=== PATIENT | female | born 1995 | race Caucasian/White ===

== ENCOUNTER 2022-11-01 12:22 | Observation (INO) | payer BC ==
[2022-11-01] MEDS ORDERED: Metoclopramide HCl 10 MG/2 ML VIAL ONE (12:48)
[2022-11-01] MEDS ORDERED: diphenhydrAMINE 50 MG/ML VIAL ONE (12:48)
[2022-11-01] MEDS ORDERED: Ondansetron PF 4 MG/2 ML Vial ONE (13:57)
[2022-11-01 14:01] LABS: #Basophils 0.1 10x3/uL (0.0-0.2); #Monocytes 0.5 10x3/uL (0.0-1.1); #Neutrophils 4.7 10x3/uL (1.5-8.4); %Basophils 1.4 % (0.0-2.0); %Lymphocytes 20.6 % (18.0-47.0); %Monocytes 7.1 % (0.0-10.0); %Neutrophils 70.4 % (40.0-75.0); Hemoglobin 14.3 g/dL (12.0-15.5); Mean Corpuscular HGB CONC 36.1 g/dL (32.0-36.0); Mean Corpuscular Hemoglobin 28.7 pg (27.0-33.0); Mean Corpuscular Volume 79.4 fl (81.6-98.3); Mean Platelet Volume 12.3 fl (7.4-10.4); Platelet Count 300 10x3/uL (150-450); Red Blood Cell (RBC) Count 4.99 10x6/uL (3.90-5.03); White Blood Cell (WBC) Count 6.7 10x3/uL (3.5-10.5)
[2022-11-01 14:10] LABS: ALT (SGPT) 9 U/L (8-55); AST (SGOT) 16 U/L (5-34); Albumin 4.6 g/dL (3.5-5.0); Alkaline Phosphatase 43 U/L (40-110); Anion Gap 21 mmol/L (10-20); BUN (Urea Nitrogen) 13 mg/dL (7.0-18.7); Bilirubin, Total 0.4 mg/dL (0.2-1.2); Calc. Creatinine Clearance 0 mL/min (70-130); Calcium 9.6 mg/dL (7.8-10.44); Carbon Dioxide 16 mmol/L (22-29); Chloride 103 mmol/L (98-107); Estimated GFR 123; Globulin 3.2 g/dL (2.4-3.5); Glucose 77 mg/dL (70-105); Potassium 3.5 mmol/L (3.5-5.1); Protein, Total 7.8 g/dL (6.0-8.3); Sodium 136 mmol/L (136-145)
[2022-11-01 15:12] LABS: Bilirubin Neg (Negative); Blood, Urine 10 (Negative); Clarity Clear (Clear); Glucose, Urine (Dipstick) Normal (Negative); Ketone, Urine 150 mg/dL (Negative); Leukocyte Negative (Negative); Nitrite Negative (Negative); Protein, Urine (Dipstick) 30 mg/dl (Neg-Trace); Urobilinogen Normal mg/dL (Less than 2)
[2022-11-01 15:19] LABS: Bacteria/HPF Rare-Few HPF (None Seen); CAUTI Indications for Culture Pregnancy; RBC/HPF 0-3 HPF (0-3); Squamous Epithelial 0-3 HPF (0-3); WBC/HPF 0-3 HPF (0-3)
[2022-11-01 15:20] LABS: Urine Culture Reflex Yes Yes
[2022-11-01] MEDS ORDERED: Ondansetron PF 4 MG/2 ML Vial IVP PRN (16:55)
[2022-11-01] MEDS ORDERED: Acetaminophen 325 MG TAB PO PRN (16:55)
[2022-11-01] MEDS ORDERED: Metoclopramide HCl 10 MG/2 ML VIAL IVP PRN (16:58)
[2022-11-01] MEDS ORDERED: Sodium Chloride 0.9% 1,000 ML IV SCH (17:00)
[2022-11-01] MEDS ORDERED: Acetaminophen 500 MG TAB PO PRN (17:15)
[2022-11-01 18:04] VITALS: BMI 25.4
[2022-11-01] MEDS: Famotidine 20 MG TAB PO SCH (20:31)
[2022-11-01] MEDS ORDERED: Famotidine/PF 20 mg/2ml Vial SLOW IVP PRN (21:00)
[2022-11-02] MEDS: Ondansetron ODT 4 MG TAB PO PRN ×2 (07:54→20:51)
[2022-11-02] MEDS: Famotidine 20 MG TAB PO SCH ×2 (07:54→20:51)
[2022-11-02] MEDS: Metoclopramide HCl 10 MG TAB PO SCH ×2 (11:04→20:51)
[2022-11-02] MEDS ORDERED: Doxycycline 100 MG CAP PO SCH (12:00)
[2022-11-02] MEDS ORDERED: Misoprostol 200 MCG TAB VAG SCH (12:00)
[2022-11-02] MEDS ORDERED: DOXYCYCLINE IVPB SCH (12:00)
[2022-11-02] MEDS ORDERED: SODIUM CHLORIDE 0.9% IVPB SCH (12:00)
[2022-11-02] MEDS ORDERED: Ondansetron PF 4 MG/2 ML Vial ONE (17:21)
[2022-11-02] MEDS ORDERED: PROPOFOL 20 ML ONE (17:21)
[2022-11-02] MEDS ORDERED: Dexamethasone 4 mg/ml Vial ONE (17:21)
[2022-11-02] MEDS ORDERED: fentaNYL 50 mcg/mL 1 mL Vial ONE (17:31)
[2022-11-02 20:24] VITALS: TEMP 98.6
[2022-11-02 21:20] VITALS: BP 112/61
== END 2022-11-02 21:25 | disposition home or self-care (01) ==
LOC: CSHERS 12:22 → CSHPP 15:48
PROVIDERS: ADMIT Obstetrics & Gynecology; ATTEND Obstetrics & Gynecology
PROC: 10D17ZZ Extraction of Products of Conception, Retained, Via Natural or Artificial Opening (ICD-10-PCS; principal; 2022-11-02)
DX: O21.0 Mild hyperemesis gravidarum (principal); O02.1 Missed abortion; Z3A.01 Less than 8 weeks gestation of pregnancy
CPT/HCPCS: 36415; 76856; 80053; 81001; 84702; 85025; 86850; 86900; 86901; 87086; 88305; 96361; 96365; 96375; 96376; G0378; J1100; J1200; J2405; J2704; J2765; J3010; J7050; Q0162

== ENCOUNTER 2023-10-11 11:37 | Emergency (ER) | payer BC ==
[2023-10-11] MEDS ORDERED: Metoclopramide HCl 10 MG (2 mL) VIAL ONE (12:04)
[2023-10-11 12:31] LABS: Bilirubin Neg (Negative); Blood, Urine Negative (Negative); Clarity Clear (Clear); Glucose, Urine (Dipstick) Normal (Negative); Ketone, Urine Negative (Negative); Leukocyte Negative (Negative); Nitrite Negative (Negative); Protein, Urine (Dipstick) Negative (Neg-Trace); Specific Gravity, Urine 1.015 (1.005-1.030)
[2023-10-11 13:40] LABS: Bacteria/HPF 3+ HPF (None Seen); CAUTI Indications for Culture Pregnancy; RBC/HPF 0-3 HPF (0-3); Squamous Epithelial 0-3 HPF (0-3); Transitional Epithelial 0-3 HPF (None Seen); WBC/HPF 0-3 HPF (0-3)
[2023-10-11 13:41] LABS: Urine Culture Reflex Yes Yes
== END 2023-10-11 13:10 | disposition home or self-care (01) ==
LOC: CSHERS 11:37
DX: R11.2 Nausea with vomiting, unspecified (principal)
CPT/HCPCS: 81001; 87086; 96374; 96375; J2765

== ENCOUNTER 2023-10-14 11:06 | Inpatient (IN) | payer BC ==
[2023-10-14] MEDS ORDERED: diphenhydrAMINE 50 MG/ML VIAL ONE (12:00)
[2023-10-14] MEDS ORDERED: Metoclopramide HCl 10 MG (2 mL) VIAL ONE (12:01)
[2023-10-14 12:18] LABS: #Basophils 0.07 10x3/uL (0.0-0.2); #Eosinphils 0.02 10x3/uL (0.0-0.5); #Monocytes 0.52 10x3/uL (0.0-1.1); #Neutrophils 4.76 10x3/uL (1.5-8.4); %Eosinophils 0.3 % (0.0-6.0); %Lymphocytes 26.2 % (18.0-47.0); %Monocytes 7.1 % (0.0-10.0); %Neutrophils 65.3 % (40.0-75.0); Hematocrit 37.4 % (34.9-44.5); Hemoglobin 13.5 g/dL (12.0-15.5); Mean Corpuscular HGB CONC 36.1 g/dL (32.0-36.0); Mean Corpuscular Hemoglobin 29.5 pg (27.0-33.0); Mean Corpuscular Volume 81.7 fL (81.6-98.3); Mean Platelet Volume 11.1 fL (7.4-10.4); Platelet Count 265 10x3/uL (150-450); RBC Distribution Width 12.3 % (11.5-14.5); Red Blood Cell (RBC) Count 4.58 10x6/uL (3.90-5.03); White Blood Cell (WBC) Count 7.3 10x3/uL (3.5-10.5)
[2023-10-14 12:29] LABS: ALT (SGPT) 12 U/L (8-55); AST (SGOT) 17 U/L (5-34); Albumin 3.9 g/dL (3.5-5.0); Alkaline Phosphatase 37 U/L (40-110); Anion Gap 13 mmol/L (10-20); BUN (Urea Nitrogen) 12 mg/dL (7.0-18.7); Bilirubin, Total 0.5 mg/dL (0.2-1.2); Calc. Creatinine Clearance 0 mL/min (70-130); Calcium 9.4 mg/dL (7.8-10.44); Carbon Dioxide 21 mmol/L (22-29); Chloride 105 mmol/L (98-107); Estimated GFR 107; Globulin 3.3 g/dL (2.4-3.5); Glucose 78 mg/dL (70-105); Potassium 4.3 mmol/L (3.5-5.1); Protein, Total 7.2 g/dL (6.0-8.3); Sodium 135 mmol/L (136-145)
[2023-10-14] MEDS ORDERED: Promethazine HCl 25 MG/ML VIAL IM PRN (13:22)
[2023-10-14] MEDS ORDERED: hydrALAZINE 20 MG/ML VIAL SLOW IVP PRN (13:22)
[2023-10-14] MEDS: Lactated Ringer's 1,000 ML IV SCH (16:36)
[2023-10-14] MEDS: Ondansetron PF 4 MG/2 ML Vial IVP PRN (18:05)
[2023-10-14] MEDS: Metoclopramide HCl 10 MG (2 mL) VIAL IVP SCH (21:09)
[2023-10-15 04:12] LABS: ALT (SGPT) 10 U/L (8-55); AST (SGOT) 18 U/L (5-34); Albumin 3.1 g/dL (3.5-5.0); Alkaline Phosphatase 31 U/L (40-110); Anion Gap 10 mmol/L (10-20); BUN (Urea Nitrogen) 10 mg/dL (7.0-18.7); Bilirubin, Total 0.4 mg/dL (0.2-1.2); Calc. Creatinine Clearance 0 mL/min (70-130); Calcium 8.5 mg/dL (7.8-10.44); Carbon Dioxide 22 mmol/L (22-29); Chloride 105 mmol/L (98-107); Estimated GFR 120; Globulin 2.7 g/dL (2.4-3.5); Glucose 95 mg/dL (70-105); Potassium 3.6 mmol/L (3.5-5.1); Protein, Total 5.8 g/dL (6.0-8.3); Sodium 133 mmol/L (136-145)
[2023-10-15] MEDS: Metoclopramide HCl 10 MG TAB PO SCH (08:33)
[2023-10-15] MEDS: Ondansetron ODT 4 MG TAB SL PRN (11:12)
[2023-10-15] MEDS: pyridOXINE 50 MG (B6) TAB PO SCH (12:07)
[2023-10-15] MEDS: Multivitamins, Adult 10 ML, Folic Acid 1 MG, Thiamine HCl 100 MG, Admixture Fee 1 EACH ... IV SCH (16:01)
[2023-10-15] MEDS: Promethazine 25 MG TAB PO PRN (16:45)
[2023-10-15] MEDS: Acetaminophen 325 MG TAB PO SCH (20:57)
[2023-10-16 03:46] LABS: Anion Gap 12 mmol/L (10-20); BUN (Urea Nitrogen) 4 mg/dL (7.0-18.7); Calc. Creatinine Clearance 0 mL/min (70-130); Calcium 8.6 mg/dL (7.8-10.44); Carbon Dioxide 21 mmol/L (22-29); Chloride 106 mmol/L (98-107); Estimated GFR 114; Glucose 91 mg/dL (70-105); Magnesium 1.7 mg/dL (1.6-2.6); Phosphorus 4.3 mg/dL (2.3-4.7); Potassium 3.5 mmol/L (3.5-5.1); Sodium 135 mmol/L (136-145)
[2023-10-16] MEDS: pyridOXINE 50 MG (B6) TAB PO SCH (08:05)
[2023-10-16 11:20] VITALS: BP 108/55; TEMP 98.5
== END 2023-10-16 14:35 | disposition home or self-care (01) | DRG 833 ==
LOC: CSHERS 11:06 → CSHPP 16:21 → OBSVTOIN 10-16 14:05
PROVIDERS: ADMIT Obstetrics & Gynecology; ATTEND Obstetrics & Gynecology
DX: O21.0 Mild hyperemesis gravidarum (principal); Z3A.01 Less than 8 weeks gestation of pregnancy; Z98.891 History of uterine scar from previous surgery
CPT/HCPCS: 36415; 76856; 80048; 80053; 83735; 84100; 84702; 85025; 96374; 96375; 96376; G0378; J1200; J2405; J2765; J3411; J7042; J7120; Q0162; Q0169

== ENCOUNTER 2023-10-18 12:56 | Inpatient (IN) | payer BC ==
[2023-10-18] MEDS ORDERED: Bisacodyl 10 MG SUPP PR PRN (14:46)
[2023-10-18] MEDS ORDERED: Bisacodyl 5 MG TAB PO PRN (14:46)
[2023-10-18] MEDS ORDERED: Senokot S 8.6-50 MG TAB PO PRN (14:46)
[2023-10-18] MEDS ORDERED: Acetaminophen 325 MG TAB PO PRN (14:46)
[2023-10-18] MEDS ORDERED: Calcium Carbonate 500 MG ChewTAB PO PRN (14:46)
[2023-10-18] MEDS ORDERED: Ondansetron PF 4 MG/2 ML Vial IVP PRN (15:05)
[2023-10-18 15:14] LABS: #Basophils 0.07 10x3/uL (0.0-0.2); #Eosinphils 0.01 10x3/uL (0.0-0.5); #Monocytes 0.49 10x3/uL (0.0-1.1); #Neutrophils 5.94 10x3/uL (1.5-8.4); %Basophils 0.9 % (0.0-2.0); %Eosinophils 0.1 % (0.0-6.0); %Lymphocytes 18.2 % (18.0-47.0); %Monocytes 6.1 % (0.0-10.0); %Neutrophils 74.6 % (40.0-75.0); Hematocrit 35.3 % (34.9-44.5); Mean Corpuscular HGB CONC 36.8 g/dL (32.0-36.0); Mean Corpuscular Hemoglobin 29.8 pg (27.0-33.0); Mean Platelet Volume 11.4 fL (7.4-10.4); Platelet Count 245 10x3/uL (150-450); RBC Distribution Width 11.9 % (11.5-14.5); Red Blood Cell (RBC) Count 4.36 10x6/uL (3.90-5.03)
[2023-10-18] MEDS ORDERED: Multivit, Adult Inj 10 ML VIAL IV SCH (15:15)
[2023-10-18 15:27] LABS: Phosphorus 3.2 mg/dL (2.3-4.7)
[2023-10-18 15:29] LABS: ALT (SGPT) 11 U/L (8-55); AST (SGOT) 16 U/L (5-34); Albumin 3.6 g/dL (3.5-5.0); Alkaline Phosphatase 38 U/L (40-110); Anion Gap 13 mmol/L (10-20); BUN (Urea Nitrogen) 13 mg/dL (7.0-18.7); Bilirubin, Total 0.4 mg/dL (0.2-1.2); Calc. Creatinine Clearance 0 mL/min (70-130); Calcium 8.9 mg/dL (7.8-10.44); Carbon Dioxide 20 mmol/L (22-29); Chloride 106 mmol/L (98-107); Estimated GFR 122; Globulin 3.2 g/dL (2.4-3.5); Glucose 74 mg/dL (70-105); Magnesium 1.8 mg/dL (1.6-2.6); Potassium 3.8 mmol/L (3.5-5.1); Protein, Total 6.8 g/dL (6.0-8.3); Sodium 135 mmol/L (136-145)
[2023-10-18] MEDS: diphenhydrAMINE 50 MG/ML VIAL IVP SCH (16:21)
[2023-10-18] MEDS: Ondansetron PF 4 MG/2 ML Vial IVP SCH (16:21)
[2023-10-18] MEDS: Lactated Ringer's 1,000 ML IV SCH (16:23)
[2023-10-18] MEDS: Dextrose 5%-Lactated Ringers 1,000 ML IV SCH (16:23)
[2023-10-18] MEDS: Pantoprazole 40 MG VIAL IVP SCH (17:08)
[2023-10-18] MEDS: Magnesium 2 GM/50 ML(in water) 2 GM in Premix 1 BAG IVPB SCH (17:39)
[2023-10-18] MEDS: Multivitamins, Adult 10 ML, Thiamine HCl 100 MG, Folic Acid 1 MG in Dextrose 5 %-0.45 %... IV SCH (17:40)
[2023-10-18 17:55] VITALS: BMI 26.7
[2023-10-18 18:34] LABS: Bilirubin Neg (Negative); Blood, Urine 10 (Negative); Clarity Clear (Clear); Glucose, Urine (Dipstick) Normal (Negative); Ketone, Urine 150 mg/dL (Negative); Leukocyte Negative (Negative); Nitrite Negative (Negative); Protein, Urine (Dipstick) 30 mg/dl (Neg-Trace); Specific Gravity, Urine 1.025 (1.005-1.030); Urobilinogen Normal mg/dL (Less than 2)
[2023-10-18 18:40] LABS: Bacteria/HPF 1+ HPF (None Seen); CAUTI Indications for Culture Pregnancy; RBC/HPF 0-3 HPF (0-3); Squamous Epithelial 0-3 HPF (0-3); WBC/HPF 0-3 HPF (0-3)
[2023-10-18 18:41] LABS: Mucous/LPF Rare LPF (<2+)
[2023-10-18 18:43] LABS: Urine Culture Reflex Yes Yes
[2023-10-18 18:54] LABS: Amphetamine Not Detected (NotDetected); Barbiturates Screen Not Detected (NotDetected); Benzodiazepine Screen Not Detected (NotDetected); Cocaine Metabolite Screen Not Detected (NotDetected); Methadone Not Detected (NotDetected); Methamphetamine Not Detected (NotDetected); Opiate Screen Not Detected (NotDetected); Oxycodone Screen Not Detected (NotDetected); Phencyclidine (PCP) Not Detected (NotDetected); THC/Cannabinoid Screen Not Detected (NotDetected); Tricyclic Screen Not Detected (NotDetected)
[2023-10-18] MEDS: Metoclopramide HCl 10 MG (2 mL) VIAL IVP SCH (20:52)
[2023-10-19 04:47] LABS: Phosphorus 2.9 mg/dL (2.3-4.7)
[2023-10-19 04:49] LABS: Anion Gap 9 mmol/L (10-20); BUN (Urea Nitrogen) 8 mg/dL (7.0-18.7); Calc. Creatinine Clearance 144 mL/min (70-130); Calcium 8.5 mg/dL (7.8-10.44); Carbon Dioxide 21 mmol/L (22-29); Chloride 107 mmol/L (98-107); Estimated GFR 125; Glucose 110 mg/dL (70-105); Magnesium 1.9 mg/dL (1.6-2.6); Potassium 3.2 mmol/L (3.5-5.1); Sodium 134 mmol/L (136-145)
[2023-10-19] MEDS: Magnesium 2 GM/50 ML(in water) 2 GM in Premix 1 BAG IVPB SCH (09:44)
[2023-10-19] MEDS: Metoclopramide HCl 10 MG (2 mL) VIAL IVP SCH (09:45)
[2023-10-19] MEDS: Pantoprazole 40 MG VIAL IVP SCH (09:45)
[2023-10-19] MEDS: diphenhydrAMINE 50 MG/ML VIAL IVP SCH (09:45)
[2023-10-19] MEDS: Ondansetron PF 4 MG/2 ML Vial IVP SCH (11:00)
[2023-10-19] MEDS: methylPREDNISolone Sod Succ/PF 125 MG/2 ML VIAL IVP SCH (11:00)
[2023-10-19] MEDS: Cephalexin 500 MG CAP PO SCH (11:01)
[2023-10-19] MEDS: Potassium Chloride 20 MEQ TAB PO SCH (11:01)
[2023-10-19] MEDS: Progesterone,Micronized 100 MG CAP PO SCH (21:42)
[2023-10-20 04:12] LABS: Anion Gap 13 mmol/L (10-20); BUN (Urea Nitrogen) Less than 4 mg/dL (7.0-18.7); Calc. Creatinine Clearance 138 mL/min (70-130); Calcium 8.8 mg/dL (7.8-10.44); Carbon Dioxide 19 mmol/L (22-29); Chloride 108 mmol/L (98-107); Estimated GFR 124; Glucose 136 mg/dL (70-105); Potassium 3.6 mmol/L (3.5-5.1); Sodium 136 mmol/L (136-145)
[2023-10-20 14:10] LABS: Magnesium 1.7 mg/dL (1.6-2.6); Phosphorus 1.6 mg/dL (2.3-4.7)
[2023-10-21 04:22] LABS: Anion Gap 12 mmol/L (10-20); BUN (Urea Nitrogen) 4 mg/dL (7.0-18.7); Calc. Creatinine Clearance 149 mL/min (70-130); Calcium 8.7 mg/dL (7.8-10.44); Carbon Dioxide 20 mmol/L (22-29); Chloride 109 mmol/L (98-107); Estimated GFR 126; Glucose 113 mg/dL (70-105); Potassium 3.6 mmol/L (3.5-5.1); Sodium 137 mmol/L (136-145)
[2023-10-21] MEDS: Magnesium 2 GM/50 ML(in water) 2 GM in Premix 1 BAG IVPB SCH ×2 (06:16→08:01)
[2023-10-21] MEDS ORDERED: Ondansetron ODT 4 MG TAB SL PRN (07:18)
[2023-10-21] MEDS: Potassium Phosphate 15 MMOL in Sodium Chloride 0.9% 100 ML IVPB SCH (08:53)
[2023-10-21] MEDS: Metoclopramide HCl 10 MG TAB PO SCH (09:02)
[2023-10-21] MEDS: predniSONE 20 MG TAB PO SCH (09:02)
[2023-10-21] MEDS: diphenhydrAMINE 25 MG CAP PO SCH (09:02)
[2023-10-21 09:50] VITALS: BP 102/60; TEMP 98.6
[2023-10-21] MEDS: Ondansetron ODT 4 MG TAB SL SCH (11:07)
[2023-10-21] MEDS ORDERED: diphenhydrAMINE 25 MG CAP PO SCH (17:00)
== END 2023-10-21 15:10 | disposition home or self-care (01) | DRG 833 ==
LOC: CSHANTE 12:56 → OBSVTOIN 10-20 08:39
PROVIDERS: ADMIT Family Medicine; ATTEND Family Medicine
DX: O21.0 Mild hyperemesis gravidarum (principal); O30.001 Twin pregnancy, unspecified number of placenta and unspecified number of amniotic sacs, first trimester; O99.281 Endocrine, nutritional and metabolic diseases complicating pregnancy, first trimester; E83.42 Hypomagnesemia; E87.6 Hypokalemia; E83.39 Other disorders of phosphorus metabolism; Z3A.01 Less than 8 weeks gestation of pregnancy; Z79.899 Other long term (current) drug therapy
CPT/HCPCS: 36415; 76856; 80048; 80053; 80306; 81001; 83735; 84100; 84439; 84443; 85025; 87086; 93005; 93010; C9113; J1200; J2405; J2765; J2930; J3411; J3475; J3490; J7042; J7120; J7512; Q0162

== ENCOUNTER 2023-10-30 09:17 | Inpatient (IN) | payer BC ==
[2023-10-30] MEDS ORDERED: Ondansetron PF 4 MG/2 ML Vial ONE (09:55)
[2023-10-30 10:15] LABS: #Basophils 0.06 10x3/uL (0.0-0.2); #Eosinphils 0.03 10x3/uL (0.0-0.5); #Monocytes 0.96 10x3/uL (0.0-1.1); #Neutrophils 6.12 10x3/uL (1.5-8.4); %Basophils 0.7 % (0.0-2.0); %Eosinophils 0.3 % (0.0-6.0); %Lymphocytes 17.4 % (18.0-47.0); %Neutrophils 70.3 % (40.0-75.0); Hematocrit 36.7 % (34.9-44.5); Hemoglobin 13.4 g/dL (12.0-15.5); Mean Corpuscular HGB CONC 36.5 g/dL (32.0-36.0); Mean Corpuscular Volume 82.3 fL (81.6-98.3); Mean Platelet Volume 11.2 fL (7.4-10.4); Platelet Count 317 10x3/uL (150-450); Red Blood Cell (RBC) Count 4.46 10x6/uL (3.90-5.03); White Blood Cell (WBC) Count 8.7 10x3/uL (3.5-10.5)
[2023-10-30 10:44] LABS: ALT (SGPT) 18 U/L (8-55); AST (SGOT) 15 U/L (5-34); Albumin 3.6 g/dL (3.5-5.0); Alkaline Phosphatase 50 U/L (40-110); Anion Gap 12 mmol/L (10-20); BUN (Urea Nitrogen) 10 mg/dL (7.0-18.7); Bilirubin, Total 0.4 mg/dL (0.2-1.2); Calc. Creatinine Clearance 0 mL/min (70-130); Calcium 9.3 mg/dL (7.8-10.44); Carbon Dioxide 24 mmol/L (22-29); Chloride 103 mmol/L (98-107); Estimated GFR 123; Globulin 3.2 g/dL (2.4-3.5); Glucose 93 mg/dL (70-105); Potassium 4.1 mmol/L (3.5-5.1); Protein, Total 6.8 g/dL (6.0-8.3); Sodium 135 mmol/L (136-145)
[2023-10-30 13:30] LABS: Phosphorus 3.1 mg/dL (2.3-4.7)
[2023-10-30] MEDS ORDERED: Promethazine HCl 12.5 MG, Admixture Fee 1 EACH in Sodium Chloride 0.9% 50 ML IVPB PRN (13:32)
[2023-10-30] MEDS ORDERED: Ondansetron PF 4 MG/2 ML Vial IVP PRN (13:33)
[2023-10-30 14:02] LABS: Bilirubin Neg (Negative); Blood, Urine 10 (Negative); Glucose, Urine (Dipstick) Normal (Negative); Ketone, Urine 150 mg/dL (Negative); Leukocyte Negative (Negative); Nitrite Negative (Negative); Protein, Urine (Dipstick) Negative (Neg-Trace); Urobilinogen Normal mg/dL (Less than 2)
[2023-10-30 14:31] LABS: Clarity Hazy (Clear)
[2023-10-30] MEDS ORDERED: Metoclopramide HCl 10 MG (2 mL) VIAL IVP PRN (14:36)
[2023-10-30] MEDS ORDERED: diphenhydrAMINE 50 MG/ML VIAL IVP PRN (14:36)
[2023-10-30 14:39] LABS: CAUTI Indications for Culture Pregnancy; RBC/HPF 0-3 HPF (0-3); Squamous Epithelial 0-3 HPF (0-3); Transitional Epithelial 0-3 HPF (None Seen); WBC/HPF 0-3 HPF (0-3)
[2023-10-30 14:40] LABS: Mucous/LPF 3+ LPF (<2+)
[2023-10-30 14:41] LABS: Bacteria/HPF 2+ HPF (None Seen)
[2023-10-30 14:42] LABS: Urine Culture Reflex Yes Yes
[2023-10-30] MEDS: Multivitamins, Adult 10 ML, Folic Acid 1 MG, Thiamine HCl 100 MG, Admixture Fee 1 EACH ... IV SCH (16:30)
[2023-10-30] MEDS: Metoclopramide HCl 10 MG (2 mL) VIAL IVP SCH ×2 (16:30→16:39)
[2023-10-30] MEDS: diphenhydrAMINE 50 MG/ML VIAL IVP SCH ×2 (16:31→16:39)
[2023-10-30] MEDS: Ondansetron PF 4 MG/2 ML Vial IVP SCH (16:39)
[2023-10-30] MEDS: Ondansetron HCl/PF 8 MG, Admixture Fee 1 EACH in Sodium Chloride 0.9% 50 ML IVPB SCH (17:36)
[2023-10-30] MEDS: Lactated Ringer's 1,000 ML IV SCH (17:36)
[2023-10-30] MEDS: PROGESTERONE MICRONIZED 200 MG VAG SCH (21:52)
[2023-10-31 04:59] LABS: ALT (SGPT) 12 U/L (8-55); AST (SGOT) 17 U/L (5-34); Alkaline Phosphatase 34 U/L (40-110); Anion Gap 12 mmol/L (10-20); BUN (Urea Nitrogen) 6 mg/dL (7.0-18.7); Bilirubin, Total 0.3 mg/dL (0.2-1.2); Calc. Creatinine Clearance 150 mL/min (70-130); Calcium 8.5 mg/dL (7.8-10.44); Carbon Dioxide 20 mmol/L (22-29); Chloride 107 mmol/L (98-107); Estimated GFR 126; Globulin 2.5 g/dL (2.4-3.5); Glucose 89 mg/dL (70-105); Magnesium 1.9 mg/dL (1.6-2.6); Phosphorus 3.2 mg/dL (2.3-4.7); Potassium 3.7 mmol/L (3.5-5.1); Protein, Total 5.5 g/dL (6.0-8.3); Sodium 135 mmol/L (136-145)
[2023-10-31] MEDS: Polyethylene Glycol 3350 17 GM Packet PO SCH (08:22)
[2023-10-31] MEDS: Potassium Chloride 20 MEQ TAB PO SCH (08:22)
[2023-10-31] MEDS: Pantoprazole 40 MG VIAL IVP SCH (08:22)
[2023-10-31] MEDS ORDERED: [UNRECOGNIZED DRUG - OTHER] PO SCH ×2 (09:00)
[2023-10-31 09:39] VITALS: BMI 26.5
[2023-10-31] MEDS: Lactated Ringer's 1,000 ML IV SCH (15:17)
[2023-10-31] MEDS: Aspirin Chewable 81 MG TAB PO SCH (21:47)
[2023-11-01 04:07] LABS: ALT (SGPT) 13 U/L (8-55); AST (SGOT) 14 U/L (5-34); Alkaline Phosphatase 34 U/L (40-110); Anion Gap 12 mmol/L (10-20); BUN (Urea Nitrogen) 4 mg/dL (7.0-18.7); Bilirubin, Total 0.3 mg/dL (0.2-1.2); Calc. Creatinine Clearance 164 mL/min (70-130); Calcium 8.6 mg/dL (7.8-10.44); Carbon Dioxide 21 mmol/L (22-29); Chloride 108 mmol/L (98-107); Estimated GFR 128; Globulin 2.4 g/dL (2.4-3.5); Glucose 86 mg/dL (70-105); Magnesium 1.8 mg/dL (1.6-2.6); Potassium 3.6 mmol/L (3.5-5.1); Protein, Total 5.4 g/dL (6.0-8.3); Sodium 137 mmol/L (136-145)
[2023-11-01] MEDS ORDERED: Promethazine 25 MG TAB PO PRN (07:29)
[2023-11-01] MEDS: Potassium Chloride 20 MEQ in Premix 1 BAG IVPB SCH (08:55)
[2023-11-01] MEDS: Pantoprazole DR 40 MG TAB PO SCH (08:56)
[2023-11-01] MEDS: Prenatal Vitamin 1 TAB PO SCH (08:56)
[2023-11-01 09:26] VITALS: BMI 26.8
[2023-11-01] MEDS: diphenhydrAMINE 25 MG CAP PO SCH (11:43)
[2023-11-01 11:44] VITALS: TEMP 98.2
[2023-11-01] MEDS: Ondansetron ODT 4 MG TAB SL SCH (11:44)
[2023-11-01] MEDS: Metoclopramide HCl 10 MG TAB PO SCH (11:44)
[2023-11-01 21:49] VITALS: BP 131/73
== END 2023-11-01 20:05 | disposition home or self-care (01) | DRG 833 ==
LOC: CSHERS 09:17 → CSHPP 09:18 → UNDOADMOB 15:32 → CSHPP 15:32 → UNDOADMOB 10-31 16:55 → CSHPP 10-31 16:55 → OBSVTOIN 10-31 16:55 → INTOOBSV 11-01 10:00
PROVIDERS: ADMIT Family Medicine; ATTEND Family Medicine
DX: O21.0 Mild hyperemesis gravidarum (principal); Z3A.08 8 weeks gestation of pregnancy; E86.0 Dehydration
CPT/HCPCS: 36415; 80053; 81001; 83735; 84100; 85025; 87086; 93005; 93010; 96361; 96374; C9113; J1200; J2405; J2765; J3411; J3480; J7042; J7120; Q0162

== ENCOUNTER 2023-11-05 13:11 | Emergency (ER) | payer BC ==
[2023-11-05] MEDS ORDERED: Metoclopramide HCl 10 MG (2 mL) VIAL ONE (14:02)
[2023-11-05] MEDS ORDERED: Multivitamins, Adult 10 ML, Thiamine HCl 100 MG, Folic Acid 1 MG in Dextrose 5 %-0.45 %... IV SCH (14:15)
[2023-11-05 15:32] LABS: Bilirubin Neg (Negative); Blood, Urine 10 (Negative); Clarity Clear (Clear); Glucose, Urine (Dipstick) Normal (Negative); Ketone, Urine 150 mg/dL (Negative); Leukocyte Negative (Negative); Nitrite Negative (Negative); Protein, Urine (Dipstick) 30 mg/dl (Neg-Trace); Urobilinogen Normal mg/dL (Less than 2)
[2023-11-05 15:47] LABS: Bacteria/HPF Rare-Few HPF (None Seen); CAUTI Indications for Culture Pregnancy; RBC/HPF 0-3 HPF (0-3); WBC/HPF 0-3 HPF (0-3)
[2023-11-05 15:48] LABS: Urine Culture Reflex Yes Yes
[2023-11-05] MEDS ORDERED: Ondansetron PF 4 MG/2 ML Vial ONE (16:29)
== END 2023-11-05 17:05 | disposition home or self-care (01) ==
LOC: CSHERS 13:11
DX: O21.0 Mild hyperemesis gravidarum (principal); E87.1 Hypo-osmolality and hyponatremia; O30.041 Twin pregnancy, dichorionic/diamniotic, first trimester; O99.281 Endocrine, nutritional and metabolic diseases complicating pregnancy, first trimester; Z3A.09 9 weeks gestation of pregnancy
CPT/HCPCS: 81001; 87086; J2405; J2765; J3411; J7042

== ENCOUNTER 2024-04-26 15:05 | Inpatient (IN) | payer BC ==
[2024-04-26 17:51] LABS: Fetal Membranes Rupture No Membranes Rupture (No Rupture)
[2024-04-26 18:04] LABS: Fetal Fibronectin Negative (Negative)
[2024-04-26 18:05] LABS: FFN Internal QC Analyzer PASS (PASS); FFN Internal QC Cassette PASS (PASS)
[2024-04-26] MEDS ORDERED: Promethazine HCl 25 MG/ML VIAL IM PRN (19:07)
[2024-04-26] MEDS ORDERED: Tranexamic Acid 1,000 MG/10 ML VIAL IVP PRN (19:07)
[2024-04-26] MEDS ORDERED: Carboprost 250 MCG/ML AMP IM PRN (19:07)
[2024-04-26] MEDS ORDERED: Diphenoxylate HCl/Atropine Tablet PO PRN (19:07)
[2024-04-26] MEDS ORDERED: Ondansetron PF 4 MG/2 ML Vial IVP PRN (19:07)
[2024-04-26] MEDS ORDERED: Misoprostol 200 MCG TAB PR PRN (19:07)
[2024-04-26] MEDS ORDERED: Methylergonovine 0.2 MG/ML VIAL IM PRN (19:07)
[2024-04-26] MEDS ORDERED: hydrALAZINE 20 MG/ML VIAL SLOW IVP PRN (19:07)
[2024-04-26] MEDS ORDERED: Oxytocin 30 units/NS 500 ML 500 ML IV SCH (19:15)
[2024-04-26 19:19] VITALS: BMI 32.5
[2024-04-26] MEDS: NIFEdipine 10 MG CAP PO SCH (19:37)
[2024-04-26] MEDS: metroNIDAZOLE 500 MG TAB PO SCH (19:39)
[2024-04-26] MEDS: Lactated Ringer's 1,000 ML IV SCH (19:41)
[2024-04-26] MEDS: Betamet Acet/Betamet Na Ph 30 MG/5 ML VIAL IM SCH (19:41)
[2024-04-26] MEDS: Betamet Acet/Betamet Na Ph 30 MG/5 ML VIAL ONE (22:29)
[2024-04-27] MEDS: metroNIDAZOLE 500 MG TAB PO SCH (08:06)
[2024-04-27] MEDS: Acetaminophen 500 MG TAB PO PRN (11:54)
[2024-04-27] MEDS: Polyethylene Glycol 3350 17 GM Packet PO SCH (13:52)
[2024-04-27] MEDS ORDERED: Acetaminophen 500 MG TAB PO PRN (16:38)
[2024-04-27] MEDS ORDERED: Mineral Oil ENEMA PR PRN (17:11)
[2024-04-27] MEDS ORDERED: Promethazine 25 MG TAB PO PRN (19:53)
[2024-04-27] MEDS: NIFEdipine 10 MG CAP ONE (20:26)
[2024-04-27] MEDS: Docusate 100 MG CAP PO SCH (20:43)
[2024-04-27] MEDS: Morphine 4 MG/ML VIAL SLOW IVP PRN (21:51)
[2024-04-28] MEDS ORDERED: diphenhydrAMINE 12.5 MG/5 ML UDCUP PO PRN (09:56)
[2024-04-28] MEDS ORDERED: Iron Sucrose Complex 100 MG in Sodium Chloride 0.9% 100 ML IVPB SCH (10:30)
[2024-04-28] MEDS: Acetaminophen 500 MG TAB PO SCH (11:27)
[2024-04-28] MEDS: Iron Sucrose Complex 500 MG in Sodium Chloride 0.9% 250 ML 250 ML IVPB SCH (12:46)
[2024-04-28 20:12] LABS: Fetal Membranes Rupture No Membranes Rupture (No Rupture)
[2024-04-28] MEDS: Polyethylene Glycol 3350 17 GM Packet PO SCH (20:35)
[2024-04-28 22:02] LABS: Bilirubin Neg (Negative); Blood, Urine Negative (Negative); Clarity Clear (Clear); Glucose, Urine (Dipstick) Normal (Negative); Ketone, Urine Negative (Negative); Leukocyte Negative (Negative); Nitrite Negative (Negative); Protein, Urine (Dipstick) Negative (Neg-Trace); Urobilinogen Normal mg/dL (Less than 2)
[2024-04-28 22:18] LABS: Bacteria/HPF Rare-Few HPF (None Seen); CAUTI Indications for Culture Pregnancy; RBC/HPF 0-3 HPF (0-3); Squamous Epithelial 0-3 HPF (0-3); WBC/HPF 0-3 HPF (0-3)
[2024-04-28 22:19] LABS: Urine Culture Reflex Yes Yes
[2024-04-29 03:19] LABS: #Basophils 0.05 10x3/uL (0.0-0.2); #Eosinophils Less than 0.03 10x3/uL (0.0-0.5); #Monocytes 1.21 10x3/uL (0.0-1.1); #Neutrophils 7.55 10x3/uL (1.5-8.4); %Basophils 0.5 % (0.0-2.0); %Eosinophils 0.1 % (0.0-6.0); %Lymphocytes 17.3 % (18.0-47.0); %Neutrophils 68.6 % (40.0-75.0); Hematocrit 21.4 % (34.9-44.5); Mean Corpuscular HGB CONC 32.7 g/dL (32.0-36.0); Mean Corpuscular Hemoglobin 24.8 pg (27.0-33.0); Mean Corpuscular Volume 75.9 fL (81.6-98.3); Mean Platelet Volume 11.1 fL (7.4-10.4); Platelet Count 240 10x3/uL (150-450); Red Blood Cell (RBC) Count 2.82 10x6/uL (3.90-5.03); White Blood Cell (WBC) Count 11.01 10x3/uL (3.5-10.5)
[2024-04-29 03:40] LABS: ALT (SGPT) Less than 7 U/L (8-55); AST (SGOT) 10 U/L (5-34); Albumin 2.3 g/dL (3.5-5.0); Alkaline Phosphatase 129 U/L (40-110); Anion Gap 12 mmol/L (10-20); BUN (Urea Nitrogen) 5 mg/dL (7.0-18.7); Bilirubin, Total 0.2 mg/dL (0.2-1.2); Calc. Creatinine Clearance 195 mL/min (70-130); Calcium 8.3 mg/dL (7.8-10.44); Carbon Dioxide 20 mmol/L (22-29); Chloride 110 mmol/L (98-107); Estimated GFR 128; Globulin 2.9 g/dL (2.4-3.5); Glucose 97 mg/dL (70-105); Potassium 3.5 mmol/L (3.5-5.1); Protein, Total 5.2 g/dL (6.0-8.3); Sodium 138 mmol/L (136-145)
[2024-04-29 04:10] LABS: Syphilis Antibody Nonreactive (Nonreactive); Syphilis Antibody Index 0.05 S/CO (<1.00 Non-Reactive)
[2024-04-29 04:13] LABS: HBsAg Index 0.28 S/CO (0-0.99); HIV (1/2) Antibody/Antigen Non-Reactive (NonReactive); HIV 1/2 INDEX 0.17 S/CO (<1.00); Hep B Surf Ag - L&D Non-Reactive S/CO (NonReactive)
[2024-04-29] MEDS: Prenatal Vitamin 1 TAB PO SCH (09:09)
[2024-04-29 09:21] LABS: Hematocrit 23.4 % (34.9-44.5); Hemoglobin 7.2 g/dL (12.0-15.5)
[2024-04-29 13:55] LABS: Hematocrit 24.9 % (34.9-44.5); Hemoglobin 7.9 g/dL (12.0-15.5); Platelet Count 241 10x3/uL (150-450)
[2024-04-30] MEDS: Mineral Oil ENEMA PR SCH (07:59)
[2024-04-30] MEDS: Lactated Ringer's 1,000 ML IV SCH (07:59)
[2024-04-30] MEDS ORDERED: Iron Sucrose Complex 100 MG in Sodium Chloride 0.9% 100 ML IVPB SCH (10:15)
[2024-04-30] MEDS: Acetaminophen 500 MG TAB PO SCH (12:21)
[2024-04-30] MEDS: Iron Sucrose Complex 500 MG, Admixture Fee 1 EACH in Sodium Chloride 0.9% 250 ML 250 ML IVPB SCH (13:13)
[2024-04-30 14:12] LABS: Group B Streptococcus by PCR Not Detected (NotDetected)
[2024-04-30 14:49] LABS: Chlamydia by PCR, Vaginal Swab Not Detected (NotDetected); GC by PCR, Vaginal Swab Not Detected (NotDetected); Tric.vaginalis PCR,Vaginal Sw Not Detected (NotDetected)
[2024-05-01 05:17] LABS: Hematocrit 26.4 % (34.9-44.5); Hemoglobin 8.6 g/dL (12.0-15.5)
[2024-05-01] MEDS ORDERED: fentaNYL 50 mcg/mL 1 mL Vial SLOW IVP PRN ×2 (11:19→17:02)
[2024-05-01] MEDS: CEFAZOLIN 2 GM VIAL ONE (15:38)
[2024-05-01] MEDS ORDERED: Famotidine/PF 20 mg/2ml Vial SLOW IVP PRN (15:43)
[2024-05-01] MEDS ORDERED: Bicitra 30 ML UDCUP PO PRN (15:43)
[2024-05-01] MEDS ORDERED: CEFAZOLIN 2 GM in Sodium Chloride 0.9% 100 ML IVPB SCH (15:45)
[2024-05-01] MEDS ORDERED: Azithromycin 500 MG in Sodium Chloride 0.9% 250 ML 250 ML IVPB SCH (16:00)
[2024-05-01 16:51] LABS: Analyzer IN Cardio CS NICU; RapidComm Collect By cbn; pH (Cord, venous) 7.354 (7.250-7.350)
[2024-05-01 16:52] LABS: Analyzer IN Cardio CS NICU; RapidComm Collect By CBN
[2024-05-01] MEDS ORDERED: diphenhydrAMINE 50 MG/ML VIAL IVP PRN (17:02)
[2024-05-01] MEDS ORDERED: Naloxone HCl 0.4 mg/ml Vial IVP PRN ×2 (17:02)
[2024-05-01] MEDS ORDERED: Meperidine HCl/PF 25 MG (1 mL) VIAL SLOW IVP PRN (17:02)
[2024-05-01] MEDS ORDERED: Moisturizing Cream (Eucerin) 113 GM JAR TOP PRN (17:02)
[2024-05-01] MEDS ORDERED: Ondansetron PF 4 MG/2 ML Vial IVP PRN ×2 (17:02)
[2024-05-01] MEDS ORDERED: Naloxone HCl 0.4 mg/ml Vial IV PRN (17:02)
[2024-05-01] MEDS ORDERED: Promethazine HCl 25 MG/ML VIAL IM PRN (17:02)
[2024-05-01] MEDS ORDERED: Communication Order-Pharmacy FS SCH (17:15)
[2024-05-01] MEDS: Diphenoxylate HCl/Atropine Tablet PO SCH (17:28)
[2024-05-01] MEDS: Tranexamic Acid 1,000 MG/10 ML VIAL ONE ×3 (17:39→18:21)
[2024-05-01 17:51] LABS: Hematocrit 30.2 % (34.9-44.5); Hemoglobin 9.8 g/dL (12.0-15.5)
[2024-05-01 18:09] LABS: Platelet Count 255 10x3/uL (150-450)
[2024-05-01] MEDS: fentaNYL 50 mcg/mL 1 mL Vial ONE (18:19)
[2024-05-01] MEDS: Morphine PF 10 MG/10 ML VIAL ONE (18:19)
[2024-05-01] MEDS: Oxytocin 10 UNITS/ML VIAL ONE ×2 (18:20→18:21)
[2024-05-01] MEDS: Dexamethasone 10 MG/ML VIAL ONE (18:20)
[2024-05-01] MEDS: Ondansetron PF 4 MG/2 ML Vial ONE (18:20)
[2024-05-01] MEDS: PHENYLEPHRINE-NS 100 MCG/ML 10 ML SYRINGE ONE (18:20)
[2024-05-01] MEDS: Phenylephrine 40 MG/NS 250 ML 250 ML ONE (18:20)
[2024-05-01] MEDS: Misoprostol 200 MCG TAB ONE (18:21)
[2024-05-01] MEDS: Phytonadione Neonatal 1 MG/0.5 ML AMP ONE (18:21)
[2024-05-01] MEDS: Carboprost 250 MCG/ML AMP ONE (18:21)
[2024-05-01] MEDS: Erythromycin Base 0.5% Oint 1 GM TUBE ONE (18:21)
[2024-05-01] MEDS: Tranexamic Acid 1,000 MG in Sodium Chloride 0.9% 250 ML 250 ML IVPB SCH (18:27)
[2024-05-01 18:41] LABS: D-Dimer Test Greater than 35.20 mcg/mL (0.19-0.50); Fibrinogen 417 mg/dL (220-504); INR-International Normal Ratio 0.9; PTT 27.3 sec (22.0-33.0); Prothrombin Time 10.1 sec (9.5-12.1)
[2024-05-01] MEDS: Ketorolac Tromethamine 30 MG (1 mL) VIAL IVP SCH (19:01)
[2024-05-01] MEDS: Sodium Chloride 0.9% 500 ML IV SCH (19:02)
[2024-05-01] MEDS ORDERED: Acetaminophen 325 MG TAB PO PRN (20:22)
[2024-05-01] MEDS ORDERED: Lanolin Ointment 7 GM TUBE TOP PRN (20:22)
[2024-05-01] MEDS ORDERED: hydrALAZINE 20 MG/ML VIAL SLOW IVP PRN (20:22)
[2024-05-01] MEDS ORDERED: Misoprostol 200 MCG TAB PR PRN (20:22)
[2024-05-01] MEDS ORDERED: Simethicone Chewable 80 MG TAB PO PRN (20:22)
[2024-05-01] MEDS ORDERED: Methylergonovine 0.2 MG/ML VIAL IM PRN (20:22)
[2024-05-01] MEDS ORDERED: Oxytocin 30 units/NS 500 ML 500 ML IV SCH (20:22)
[2024-05-01] MEDS ORDERED: Methylergonovine 0.2 MG TAB PO PRN (20:22)
[2024-05-01 22:00] LABS: #Basophils 0.04 10x3/uL (0.0-0.2); #Eosinophils Less than 0.03 10x3/uL (0.0-0.5); #Monocytes 0.93 10x3/uL (0.0-1.1); %Basophils 0.2 % (0.0-2.0); %Eosinophils 0.1 % (0.0-6.0); %Lymphocytes 6.4 % (18.0-47.0); %Neutrophils 87.1 % (40.0-75.0); Hematocrit 31.2 % (34.9-44.5); Hemoglobin 10.1 g/dL (12.0-15.5); Mean Corpuscular HGB CONC 32.4 g/dL (32.0-36.0); Mean Corpuscular Hemoglobin 25.3 pg (27.0-33.0); Mean Corpuscular Volume 78.2 fL (81.6-98.3); Mean Platelet Volume 11.7 fL (7.4-10.4); Platelet Count 267 10x3/uL (150-450); RBC Distribution Width 14.7 % (11.5-14.5); Red Blood Cell (RBC) Count 3.99 10x6/uL (3.90-5.03); White Blood Cell (WBC) Count 18.61 10x3/uL (3.5-10.5)
[2024-05-01 22:57] LABS: ALT (SGPT) 17 U/L (Less than 34); AST (SGOT) 46 U/L (11-34); Albumin 2.8 g/dL (3.1-4.5); Alkaline Phosphatase 167 U/L (40-110); Anion Gap 14 mmol/L (10-20); BUN (Urea Nitrogen) 5 mg/dL (7.0-18.7); Bilirubin, Total 0.3 mg/dL (0.3-1.2); Calc. Creatinine Clearance 189 mL/min (70-130); Calcium 9.5 mg/dL (7.8-10.44); Carbon Dioxide 21 mmol/L (22-29); Chloride 102 mmol/L (98-107); Estimated GFR 127; Globulin 3.4 g/dL (2.4-3.5); Glucose 107 mg/dL (70-105); Potassium 4.2 mmol/L (3.5-5.1); Protein, Total 6.2 g/dL (6.0-8.3); Sodium 133 mmol/L (136-145)
[2024-05-01 23:02] LABS: Creatinine, Urine 22.08 mg/dL (16.00-327.00); Protein, Urine Random Quant Less than 10 mg/dL (1-14)
[2024-05-02] MEDS: Ketorolac Tromethamine 30 MG (1 mL) VIAL IVP PRN (00:45)
[2024-05-02] MEDS: Docusate 100 MG CAP PO SCH (01:25)
[2024-05-02 05:47] LABS: Hematocrit 26.1 % (34.9-44.5); Hemoglobin 8.7 g/dL (12.0-15.5); Mean Corpuscular HGB CONC 33.3 g/dL (32.0-36.0); Mean Corpuscular Hemoglobin 25.7 pg (27.0-33.0); Mean Corpuscular Volume 77.2 fL (81.6-98.3); Mean Platelet Volume 11.2 fL (7.4-10.4); Platelet Count 254 10x3/uL (150-450); RBC Distribution Width 14.6 % (11.5-14.5); Red Blood Cell (RBC) Count 3.38 10x6/uL (3.90-5.03); White Blood Cell (WBC) Count 18.52 10x3/uL (3.5-10.5)
[2024-05-02] MEDS: Prenatal Vitamin 1 TAB PO SCH (08:21)
[2024-05-02] MEDS: Ferrous Sulfate 325 MG TAB PO SCH (08:21)
[2024-05-02] MEDS: HYDROcodone/Acetaminophen 5/325 mg Tablet PO PRN (08:25)
[2024-05-02] MEDS: Boostrix 0.5 ML (Tdap) VIAL (>/=7 yrs of age) IM ONE (20:40)
[2024-05-02] MEDS: Ibuprofen 800 MG TAB PO SCH (22:39)
[2024-05-03 05:38] LABS: Mean Corpuscular HGB CONC 32.1 g/dL (32.0-36.0); Mean Corpuscular Hemoglobin 24.9 pg (27.0-33.0); Mean Corpuscular Volume 77.6 fL (81.6-98.3); Mean Platelet Volume 11.4 fL (7.4-10.4); Platelet Count 286 10x3/uL (150-450); RBC Distribution Width 16.8 % (11.5-14.5); Red Blood Cell (RBC) Count 3.61 10x6/uL (3.90-5.03); White Blood Cell (WBC) Count 15.29 10x3/uL (3.5-10.5)
[2024-05-03 08:05] VITALS: BP 114/70; TEMP 97.4
== END 2024-05-03 16:50 | disposition home or self-care (01) | DRG 787 ==
LOC: CSHLD/OP 15:05 → CSHLD 19:09 → OBSVTOIN 04-28 09:58 → CSHANTE 04-29 17:29 → CSHLD 05-01 12:12 → CSHPP 05-01 20:20
PROVIDERS: ADMIT Obstetrics & Gynecology; ATTEND Obstetrics & Gynecology
PROC: 30233N1 Transfusion of Nonautologous Red Blood Cells into Peripheral Vein, Percutaneous Approach (ICD-10-PCS; principal; 2024-04-28)
PROC: 10D00Z1 Extraction of Products of Conception, Low, Open Approach (ICD-10-PCS; 2024-04-28)
DX: O60.14X0 Preterm labor third trimester with preterm delivery third trimester, not applicable or unspecified (principal); O72.1 Other immediate postpartum hemorrhage; O87.8 Other venous complications in the puerperium; O69.89X1 Labor and delivery complicated by other cord complications, fetus 1; I86.8 Varicose veins of other specified sites; O34.219 Maternal care for unspecified type scar from previous cesarean delivery; O30.043 Twin pregnancy, dichorionic/diamniotic, third trimester; O99.62 Diseases of the digestive system complicating childbirth; K59.00 Constipation, unspecified; O99.02 Anemia complicating childbirth; D50.9 Iron deficiency anemia, unspecified; Z37.2 Twins, both liveborn; Z3A.34 34 weeks gestation of pregnancy
CPT/HCPCS: 36415; 36430; 51702; 76815; 76817; 76819; 76856; 80053; 81001; 82570; 82731; 82805; 84112; 84156; 85014; 85018; 85025; 85027; 85049; 85300; 85362; 85384; 85610; 85730; 86780; 86850; 86900; 86901; 87086; 87340; 87389; 87480; 87491; 87510; 87591; 87653; 87660; 87661; 88307; 99285; J1100; J1756; J1885; J2270; J2274; J2405; J2590; J3010; J3490; J7050; J7120; P9016